=== PATIENT | female | born 1990 | race African-American/Black ===

== ENCOUNTER 2022-03-17 10:57 | Outpatient (REF) | payer MEDICAID, SELFPAY ==
[2022-03-17 12:34] LABS: Source Nasal/Nares
[2022-03-17 15:57] LABS: COVID-19 PCR Negative (Negative)
== END 2022-03-17 10:58 | disposition home or self-care (01) ==
LOC: LBN 10:57
PROVIDERS: PCP Physician Assistant Medical; Visit Provider Surgery
DX: Z20.822 Contact with and (suspected) exposure to COVID-19 (principal); Z01.818 Encounter for other preprocedural examination
CPT/HCPCS: 87635

== ENCOUNTER 2022-03-20 10:37 | Day surgery (SDC) | payer MEDICAID, SELFPAY ==
--- NOTE | 2022-03-20 06:57 | W.PM.ENDDOP ---
Date of service: 03/20/22 Time of Service: 11:08 Endoscopy Report DATE OF PROCEDURE: 03/20/22 PRE-OP DIAGNOSIS: Nausea/Vomiting and abdominal pain POST-OP DIAGNOSIS: other (gastritis, duodenitis) PROCEDURE: EGD with biopsies SURGEON: Ofelia Escobar ANESTHESIA TYPE: General:No Airway ESTIMATED BLOOD LOSS: 3 PATHOLOGY: other (duodenal bx, gastric bx, ge junction bx) COMPLICATIONS: None DISPOSITION: same day INDICATIONS: Divya is a pleasant 31-year-old female with epigastric pain, nausea and vomiting since mid February.? She did have a CT scan which revealed some enteritis with reactive mesenteric inflammation.? Her gallbladder was contracted on that CAT scan.? She underwent an ultrasound which also showed a contracted gallbladder.? There is no pericholecystic fluid and no signs of inflammation.? There were no stones that they could see.? She did have a Samano sign at that time.? Since then she has continued with mostly epigastric pain, epigastric burning, and bloating.? She is able to eat things like crackers and granola bars without difficulty.? She has a past medical history significant for constipation and opiate abuse. I went over the anatomy with her and her boyfriend.? We reviewed the organs that are in the right upper quadrant and epigastric area.? Her symptoms at this time are more consistent with gastritis/gastric ulcers.? She could have gallbladder dyskinesia as well.? I suggest starting with an upper endoscopy with biopsies.? She has not yet picked up the omeprazole Carafate and Zofran that was prescribed by her primary care physician.? I have encouraged her to pick those up and start taking them.? I reviewed the procedure in detail as well as the risks and the benefits.? She wished to proceed with upper endoscopy to start with. Proceed with EGD and biopsies FINDINGS: inflammation of duodenum, stomach Food in the duodenum that refluxed back into the stomach PROCEDURE DESCRIPTION: After informed consent was obtained the patient was take to the procedure room and placed in a supine position. Monitors were applied and a time out was done. The patients name, date of , procedure type, allergies to medications and metal in their body was reviewed. A bite block was placed and the patient was sedated. Once sedated and comfortable the gastroscope was advanced through the oropharynx which was grossly normal into the esophagus. The proximal and mid-esophagus were normal. In the distal esophagus there was mild inflammation noted. The scope was advanced into the stomach and through the pylorus into the 3rd portion of the duodenum. The duodenum was noted to have some inflammation. Biopsies were done. The scope was retracted back into the stomach and biopsies were done to rule out H. pylori. There were no ulcers. The scope was retroflexed. The cardia and fundus were noted to be normal. There was no hiatal hernia noted. The scope was retracted back into the esophagus and biopsies were done of the GE junction to rule out Raymond's. The Z line was regular. The GE junction was at 40 cm. The scope was removed and the patient was woken up and taken back to [facility] in stable condition. Follow up: 2 weeks
--- NOTE | 2022-03-20 06:58 | PDOC.DSDIS_ITS ---
Discharge Plan Disposition Patient Disposition: HOME Condition: Good Discharge Details Reason For Visit: Epicgastric pain Attending Provider: Ofelia Escobar Primary Care Provider: Justa Sinclair Home Meds and New Rx's Prescriptions: Continued gabapentin 600 mg tablet 600 mg PO TID methylphenidate HCl 10 mg tablet 10 mg PO QID sumatriptan succinate 100 mg tablet 100 mg PO DAILY sucralfate 1 gram tablet 1 g PO QAC ondansetron 8 mg tablet,disintegrating 8 mg PO Q12H omeprazole 40 mg capsule,delayed release(DR/EC) 40 mg PO DAILY naproxen 500 mg tablet 500 mg PO TID eszopiclone [Lunesta] 2 mg tablet 2 mg PO QHS epinephrine 0.3 mg/0.3 mL auto-injector 0.3 mg IM ONCE Rx Instructions: as a single dose; may repeat once zolpidem [Ambien CR] 6.25 mg Tablet,Ext Release Multiphase 6.25 mg PO QHS Discharge Instructions Instructions: Diet for Stomach Ulcers and Gastritis (ED), Duodenitis (DC), Gastritis (DC) Additional Instructions: Findings:Inflammation of the small intestine and stomach Follow up: 2 weeks Medication: Please start taking the medication as prescribed. Take Carafate first. Wait 30 minutes, if nauseated take zofran and then try to eat something Please call if you develop: fevers >101.5 Nausea or Vomiting Abdominal pain that is not transient Rectal bleeding that is more then a tbsp A hard abdomen and inability to pass gas DAY SURGERY UNIT POST ENDOSCOPY INSTRUCTIONS Instructions for everyone who is given Anesthesia: For your safety, please do the following for the next 24 Hours: a. Do not drive or operate dangerous equipment b. Do not drink alcohol beverages or use any recreational drugs for the first 24 hours or while taking pain medications. The medications in your body may have a reaction that can be dangerous. c. Do not make any important decisions or sign any important papers 1. Generally there are no restrictions on your activity after a day or so has gone by, but you may feel a bit fatigued for a few days. 2. After you arrive home you may have a light meal and return to a normal diet as you can tolerate it without feeling sick to your stomach. 3. After surgery, you may feel pain or discomfort. This should be only transient, but if it persists please contact your doctor. 4. If there are any questions regarding the findings of your procedure, please feel free to contact your doctor. 6. If you are unable to contact your doctor with a problem, contact the hospital at [phone]. 7. Continue all your regular medications unless directed otherwise. I understand the above instructions and have no questions. Signature of Patient or Responsible Adult Escort Date/Time Name of Responsible Adult Escort Signature of Nurse Date/Time Referrals: Ofelia Escobar MD [ [facility] STAFF PHYSICIAN] - (2 weeks) Activity:: Activity as Tolerated Diet:: As Tolerated Discharge Orders Discharge Orders: Discharge Order (Routine); Ordered 03/20/22 Ordered By: Ofelia Escobar
[2022-03-20 10:40] VITALS: BP 116/82; PULSE 85; RESP 18; TEMP 36.1; O2SAT 100
[2022-03-20] MEDS: Lactated Ringers 1,000 ML 80 ML IV (11:25)
--- NOTE | 2022-03-20 11:25 | W.ANESPRE ---
General Info Date of Service Date Performed: 03/20/22 Height: 5 ft 5 in Weight: 66.4 kg Body Mass Index (BMI): 24.3 Surgical Procedure: Operation Date: 03/20/22 11:35 Proposed Procedure Side Surgeon p Gastroscopy Ofelia Escobar MD Meds Allergies and Home Medications Allergies Allergy/AdvReac Type Severity Reaction Status Date / Time latex Allergy Mild Itching Verified 03/17/22 15:25 trazodone Allergy Mild Hives Verified 03/17/22 15:25 diphenhydramine Allergy Unknown Verified 03/17/22 15:25 [From Benadryl] duloxetine [From Cymbalta] Allergy Unknown Verified 03/17/22 15:25 tizanidine Allergy Verified 03/17/22 15:25 Home Medication Medication Instructions Recorded epinephrine 0.3 mg/0.3 mL 0.3 mg IM ONCE 03/14/22 injection, auto-injector eszopiclone 2 mg tablet (Lunesta) 2 mg PO QHS 03/14/22 gabapentin 600 mg tablet 600 mg PO TID 03/14/22 methylphenidate HCl 10 mg tablet 10 mg PO QID 03/14/22 naproxen 500 mg tablet 500 mg PO TID 03/14/22 omeprazole 40 mg capsule,delayed 40 mg PO DAILY 03/14/22 release ondansetron 8 mg disintegrating 8 mg PO Q12H 03/14/22 tablet sucralfate 1 gram tablet 1 g PO QAC 03/14/22 sumatriptan succinate 100 mg tablet 100 mg PO DAILY 03/14/22 zolpidem 6.25 mg tablet,extended 6.25 mg PO QHS 03/20/22 release,multiphase (Ambien CR) Current Visit Medications: Current Medications Generic Name Dose Route Start Last Admin Trade Name Freq PRN Reason Stop Dose Admin Hyoscyamine Sulfate 0.125 mg 03/20/22 06:58 Hyoscyamine 0.125 Mg Sl/Oral/Chew SL DIRECTED PRN Ringer's Solution 1,000 mls @ 80 mls/hr 03/20/22 06:00 03/20/22 11:25 IV 04/16/22 23:59 80 mls/hr INFUSION JERI Administration IV Miscellaneous Supplies 1 each 03/20/22 06:00 Iv Access IV 04/16/22 23:59 DIRECTED JERI Ondansetron HCl 4 mg 03/20/22 06:58 Ondansetron 4 Mg/2 Ml Vial IVP Q4H PRN PRN Nausea / Vomiting Sodium Chloride 0 ml 03/20/22 06:00 Normal Saline Flush 10 Ml Syr IV 04/16/22 23:59 PRN PRN Sodium Chloride 0 ml 03/20/22 06:00 Normal Saline 10 Ml Vial IJ 04/16/22 23:59 DIRECTED PRN Sterile Water 0 ml 03/20/22 06:00 Water,Injection,Sterile 10 Ml Vial IJ 04/16/22 23:59 DIRECTED PRN PFSH Active Problems Active Problems: Problem Status Onset Code Vomiting R11.10 Epigastric pain R10.13 Medical History Medical History Anxiety Arthropathy Constipation Depressive disorder Dysfunctional voiding of urine Injury of elbow Injury of finger Injury of hand Injury of wrist Insomnia IUD contraception Melanocytic nevus Migraine Pain of right thumb Periumbilical pain PTSD (post-traumatic stress disorder) Sciatica Substance abuse Therapeutic drug monitoring Trigeminal nerve disorder Surgical History Surgical History H/O bilateral salpingo-oophorectomy History of carpal tunnel surgery History of incision and drainage S/P wrist surgery Tobacco Smoking/Tobacco Use Status: Former Tobacco Use Alcohol Alcohol Intake: current Substance Use Substance use: Current Sobriety Substance use type: does not use Prental History History 7 Para 4 Hx # Term Pregnancies 3 Multiple births Hx # Pregnancies 1 Ectopic pregnancies AB induced 3 Hx Number of Living Children 4 AB spontaneous Vital Signs and Lab Results Vital Signs Most Recent Vital Signs in EMR: Most Recent Vital Signs Temp Pulse Resp BP Pulse Ox 36.1 C L 85 18 116/82 100 03/20/22 10:40 03/20/22 10:40 03/20/22 10:40 03/20/22 10:40 03/20/22 10:40 Point of Care Results Point of Care Results: POC- Test(urine) Negative 03/20/22 11:24 Lab Results Blood Type / Crossmatch: No Data to Display Complete Blood Count: No Data to Display Complete Metabolic Panel: No Data to Display Liver Function Panel: No Data to Display Coagulation Panel: No Data to Display Cardiac Panel: No Data to Display Arterial Blood Gas: No Data to Display Venous Blood Gas: No Data to Display Pancreas Panel: No Data to Display Thyroid Panel: No Data to Display Infectious Disease: Coronavirus (COVID-19)(PCR) Negative (Negative) 03/17/22 10:45 Coronavirus 2019 Source Nasal/Nares 03/17/22 10:45 Blood Cultures: No Data to Display Toxicology Panel: No Data to Display Panel: No Data to Display Anesthesia Assessment and Plan Anesthesia History Personal History: No History of Anesthesia Complications Family History: Family History Unknown Exercise Tolerance Exercise Tolerance: Metabolic Equivalents>4 Pertinent Negatives Pertinent Negatives: No Symptoms of GERD Cardiac & Pulmonary Exam Cardiac Exam: Normal S1/S2 Heart Sounds Pulmonary Exam: Clear Bilateral Breath Sounds Implantable Cardiac Device Does patient have a Pacemaker or an ICD?: No Airway Exam Known Difficult Airway: No Mallampati Class: 1 Mouth Opening: Normal (> 3cm) Thyromental Distance: Greater than 3 cm Neck Range of Motion: Full ROM Neck Circumference: Normal Teeth Condition: Normal Dentition ASA Classification ASA Score: ASA 2 Emergency Case?: No NPO Status NPO Status: NPO Clears >2 hours, Solids >8 hours Status Status: Not Relevant due to Medical History Anesthesia Plan Resuscitation Status: Full Code Anesthesia Technique: General Anesthesia Airway Planned: Natural Airway Monitors Used: Standard Monitors
[2022-03-20 11:30] VITALS: BMI 24.3
--- NOTE | 2022-03-20 12:00 | BOWEL_PTH ---
PATIENT: Divya Nicolas LOC: [facility] U#:[id number] AGE/SX: 31/F ROOM: RE03/20/[address]: Ofelia Escobar MD : [id number] BED: DIS: 03/20/2022 SPEC #: [id number] RECD: 03/20/22 13:06 STATUS: AISHWARYA RE #: [id number] ECHO: 03/20/22 12:[address]: Ofelia Escobar DEPT: Surgical Specimen RECD BY: Celeste Brannon ENTERED: 03/20/22 13:07 SP TYPE: Bowel OTHR DR: Justa Sinclair Tissues: 1 - BIOPSY BOWEL 2 - STOMACH BIOPSY 3 - ESOPHAGUS BIOPSY Procedures: GROSS AND MICRO LEVEL 4 Comments: [id number]
[2022-03-20 12:27] VITALS: BP 109/96; PULSE 87; RESP 20; TEMP 37; O2SAT 98
[2022-03-20] MEDS: Ondansetron 4 MG/2 ML VIAL IVP (12:47)
[2022-03-20 12:49] VITALS: BP 126/93; PULSE 76; RESP 18; TEMP 36.8; O2SAT 100
--- NOTE | 2022-03-20 13:00 | W.ANESPOSTOP ---
Postoperative Evaluation Date, Time and Location Date Performed: 03/20/22 Time Performed: 12:45 Patient Location: Day Surgery Unit Vital Signs Most Recent Imported Vital Signs: Most Recent Vital Signs Temp Pulse Resp BP Pulse Ox 36.8 C 76 18 126/93 H 100 03/20/22 12:49 03/20/22 12:49 03/20/22 12:49 03/20/22 12:49 03/20/22 12:49 Pain Score Most Recent Pain Score: Most Recent Pain Score Pain Level 0 03/20/22 12:49 Assessment Mental Status: Awake (Alert & Oriented to Patient Baseline) Airway and Respiratory Function: Patent airway with normal (patient baseline) respiratory exam Cardiovascular Function: Hemodynamically Stable Hydration Status: Adequately Hydrated Nausea & Vomiting: No Nausea or Vomiting Pain: Pt. Denies Any Pain Peripheral Nerve Block: Patient did not receive a nerve block
== END 2022-03-20 13:15 | disposition home or self-care (01) ==
PROVIDERS: PCP Physician Assistant Medical; Visit Provider Surgery
PROC: 0DJ68ZZ Inspection of Stomach, Via Natural or Artificial Opening Endoscopic (ICD-10-PCS; CPT 43235; principal; 2022-03-20 11:30)
DX: R10.13 Epigastric pain (principal); K29.70 Gastritis, unspecified, without bleeding; K29.80 Duodenitis without bleeding; K31.89 Other diseases of stomach and duodenum; K22.89 Other specified disease of esophagus
CPT/HCPCS: 43239; 81025; 88305; J2405; J2704